=== PATIENT | male | born 1990 | race Caucasian/White ===

== ENCOUNTER → 2018-10-17 09:19 | Outpatient (CLI) | payer MEDICARE, SELFPAY ==
[2018-10-17 09:55] LABS: Absolute Lymphocyte Count 1.89 X10^3/ul (0.83-4.51); Absolute Neutrophil Count 3.3 X10^3/uL (2.0-7.7); Basophil# 0.01 X10^3/uL; Basophil% 0.2 % (0-1); Eosinophil# 0.15 X10^3/uL; Eosinophils% 2.6 % (0-5); Hematocrit 43.3 % (40-54); Hemoglobin 14.9 g/dl (13.0-16.5); Lymphocyte # 1.89 X10^3/ul (4.0); Lymphocyte % 32.5 % (19-41); Mean Corp Hgb Conc 34.4 g/gl (32-36); Mean Corpuscular Hgb 28.8 pg (27.0-32.0); Mean Corpuscular Volume 83.6 fL (80-94); Mean Platelet Vol. 10.4 fl (6.2-12.0); Monocyte# 0.46 X10^3/uL; Monocyte% 7.9 % (0-10); Neutrophil % 56.6 % (47-70); Platelet Count 186 K/mm3 (150-450); RBC Distribution Width CV 12.3 % (11.6-14.6); RBC Distribution Width SD 37.5 fl (35.1-43.9); Red Blood Count 5.18 M/mm3 (4.6-6.2); White Blood Count 5.8 K/mm3 (4.4-11.0)
[2018-10-17 09:58] LABS: POSITIVE COUNT NO; POSITIVE DIFFERENTIAL NO; POSITIVE MORPHOLOGY NO
[2018-10-17 10:45] LABS: ALB/GLOB Ratio 1.1 RATIO (0.9-2.4); AST(SGOT) 25 U/L (15-37); Alanine Aminotransfer ALT/SGPT 39 U/L (16-61); Albumin, Serum 3.9 g/dL (3.2-5.0); Alkaline Phosphatase 100 U/L (45-117); Anion Gap 8 (5-15); BUN 17 mg/dL (7-18); BUN/Creat Ratio 13.2 RATIO (10-20); Chloride 107 mmol/L (98-107); Cholesterol 173 mg/dL (200); Creatinine, Serum 1.29 mg/dL (0.70-1.30); EST Glomerular Filtration Rate 70 mL/min (>60); Est Glom Filt Rate - Afr Amer 84 mL/min (>60); Globulin 3.4 g/dL (2.2-4.2); Glucose 97 mg/dL (74-106); High Density Lipoprotein 32 mg/dL; Potassium 4.2 mmol/L (3.5-5.1); Prolactin 27.7 ng/mL; Protein, Total 7.3 g/dL (6.4-8.2); Sodium Level 143 mmol/L (136-145); Triglycerides 127 mg/dL; Very Low Density Lipoprotein 25 mg/dL (5-40)
--- OUTSIDE RECORDS SUMMARY | 2019-01-18 16:03 | XMS RPT_ITS ---
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 therapy / Repository Z79.899(ICD-10) 2018 Active Encounter for NA Active [facility] screening for [place] lipoid disorders Repository / Z13.220(ICD-10) PROCEDURES PROCEDURES No Procedure Records FoundRESULTS RESULTS CBC W/DIFF, AUTOMATED Collected: 10/17/2018 Status: F Source: [place] 9:32 AM [facility] REPOSITORY TYPE CODE TESTS RESULT OUT OF RANGE REFERENCE UNITS LAB L100.1000 4.4-11.0 K/mm3 Normal WBC 5.8 LAB L100.1200 4.6-6.2 M/mm3 Normal RBC 5.18 LAB L100.1300 13.0-16.5 g/dl Normal HGB 14.9 LAB L100.1400 40-54 % Normal HCT 43.3 LAB L100.1500 80-94 fL Normal MCV 83.6 LAB L100.1600 27.0-32.0 pg Normal MCH 28.8 LAB L100.1700 32-36 g/gl Normal MCHC 34.4 LAB L100.1810 11.6-14.6 % Normal RDW CV 12.3 LAB L100.1820 35.1-43.9 fl Normal RDW SD 37.5 LAB L100.1900 150-450 K/mm3 Normal PLT 186 LAB L100.2000 6.2-12.0 fl Normal MPV 10.4 LAB L100.2100 47-70 % Normal NEUT% 56.6 LAB L100.2200 19-41 % Normal LY% 32.5 LAB L100.2300 0-10 % Normal MONO% 7.9 LAB L100.2400 0-5 % Normal EO% 2.6 LAB L100.2500 0-1 % Normal BASO% 0.2 LAB L100.2550 0.0-0.9 % Normal IM GRAN % 0.200 Result Comment: IG% - Immature Granulocytes (promyelocytes, myelocytes and metamyelocytes) > 1% indicates that a LEFT SHIFT is Present. LAB L100.2620 2.0-7.7 X10 3/uL Normal Absolute Neut 3.3 LAB L100.2720 0.83-4.51 X10 3/ul Normal Absolute Lymph 1.89 Performed By: #### L100.0100 #### [facility] [address] [place], [address] COMPREHENSIVE METABOLIC Collected: 10/17/2018 Status: F Source: [facility] 9:32 AM [facility] REPOSITORY TYPE CODE TESTS RESULT OUT OF RANGE REFERENCE UNITS LAB L501.0100 74-106 mg/dL Normal GLU 97 Result Comment: Please note revised GLUCOSE reference range effective 2017. LAB L501.1000 7-18 mg/dL Normal BUN 17 LAB L501.1100 0.70-1.30 mg/dL Normal CREAT,SERUM 1.29 Result Comment: The validity of the calculated GFR AND GFRAA in patients over 70 years has not been determined. Clinical correlation is essential. LAB L501.1110 >60 mL/min Normal EST GFR 70 Result Comment: Non- GFR Calc LAB L501.1115 >60 mL/min Normal EST GFR - AA 84 Result Comment: GFR Calc LAB L501.1300 10-20 RATIO Normal BUN/CRE 13.2 LAB L501.1500 6.4-8.2 g/dL T Normal PROT 7.3 LAB L501.1800 3.2-5.0 g/dL Normal ALB 3.9 LAB L501.1950 2.2-4.2 g/dL Normal GLOB 3.4 LAB L501.2000 0.9-2.4 RATIO Normal A/G 1.1 LAB L501.2200 8.5-10.1 mg/dL CA Normal 9.0 LAB L501.4100 15-37 U/L Normal AST 25 LAB L501.4305 45-117 U/L Normal ALK P 100 LAB L501.4405 16-61 U/L Normal ALT 39 LAB L501.4600 0.20-1.00 mg/dL T Normal BILI 0.40 LAB L501.5300 136-145 mmol/L NA Normal 143 LAB L501.5600 3.5-5.1 mmol/L K Normal 4.2 LAB L501.5900 98-107 mmol/L CL Normal 107 LAB L501.6100 21.0-32.0 mmol/L Normal CO2 28.0 LAB L501.6200 5-15 Normal GAP 8 Performed By: #### L500.4050, L500.4100, L501.9520, L3100.5420 #### [facility] [address] [place], [address] LIPID PROFILE Collected: 10/17/2018 Status: F Source: [place] 9:32 AM [facility] REPOSITORY TYPE CODE TESTS RESULT OUT OF RANGE REFERENCE UNITS LAB L501.4900 200 mg/dL Normal CHOL 173 Result Comment: <200 mg/dL Desirable 200-240 mg/dL Borderline >240 mg/dL High Risk LAB L501.5000 mg/dL Normal TRIG 127 Result Comment: The drugs N-Acetylcysteine and Metamizole may falsely depress this assay. Serum Triglycerides Reference Interval Normal <150 mg/dL Borderline high 150 - 199 mg/dL High 200 - 499 mg/dL Very High > or = 500 mg/dL LAB L501.6400 mg/dL Low HDL 32 Result Comment: The drugs N-Acetylcysteine and Metamizole may falsely depress this assay. Reference Range HDL <40 mg/dL Low HDL Cholesterol HDL >or= 60 mg/dL High HDL Cholesterol LAB L501.6500 0-130 mg/dL Normal LDL 116 LAB L501.6600 5-40 mg/dL Normal VLDL 25 Performed By: #### L500.4050, L500.4100, L501.9520, L3100.5420 #### [facility] [address] [place], [address] THYROID STIM HORMONE Collected: 10/17/2018 Status: F Source: [place] ([facility]) 9:32 AM [facility] REPOSITORY TYPE CODE TESTS RESULT OUT OF RANGE REFERENCE UNITS LAB L501.9520 0.358-3.74 uIU/mL Normal TSH 1.00 Performed By: #### L500.4050, L500.4100, L501.9520, L3100.5420 #### [facility] [address] [place], [address] PROLACTIN Collected: 10/17/2018 Status: F Source: [place] 9:32 AM [facility] REPOSITORY TYPE CODE TESTS RESULT OUT OF RANGE REFERENCE UNITS LAB L3100.5420 ng/mL Normal PROLACTIN 27.7 Result Comment: NORMAL REFERENCE RANGES FEMALE NON- 2.2 - 30.3 ng/mL 8.1 - 347.6 ng/mL POST-MENOPAUSAL 0.7 - 31.5 ng/mL MALE 2.5 - 17.4 ng/mL NEW TEST METHOD AND REFERENCE RANGES MARCH 20, 2012 Performed By: #### L500.4050, L500.4100, L501.9520, L3100.5420 #### [facility] [address] [place], [address] LIPID PANEL, BASIC Collected: 2018 Status: F Source: [place] 2:08 PM [facility] REPOSITORY TYPE CODE TESTS RESULT OUT OF REFERENCE UNITS RANGE LAB CHOL <200 mg/dL Cholesterol 193 Result Comment: <200 mg/dL, Desirable 200-239 mg/dL, Borderline high >239 mg/dL, High LAB TRIGLY <150 mg/dL Triglyceride 139 Result Comment: <150 mg/dL, Normal 150-199 mg/dL, Borderline high 200-499 mg/dL, High >499 mg/dL, Very high LAB HDL >39 mg/dL HDL-Cholesterol Low 33 Result Comment: 40-59 mg/dL, Acceptable >59 mg/dL, High: Negative risk factor for coronary heart disease <40 mg/dL, Low: Positive risk factor for coronary heart disease LAB LDL <100 mg/dL LDL-Cholesterol High 132 Result Comment: <100 mg/dL, Optimal 100-129 mg/dL, Near optimal/above optimal 130-159 mg/dL, Borderline high 160-189 mg/dL, High >189 mg/dL, Very high Secondary prevention optimal LDL Cholesterol levels are recommended to be < 70 mg/dL LAB NONHDL <130 mg/dL Non HDL High Cholesterol 160 Result Comment: <130 mg/dL, Optimal 130-159 mg/dL, Near optimal/above optimal 160-189 mg/dL, Borderline high 190-219 mg/dL, High >219 mg/dL, Very high Secondary prevention optimal non HDL Cholesterol levels are recommended to be < 100 mg/dL LAB FT hrs Fasting Time 16 LAB VLDL <30 mg/dL VLDL Cholesterol 28 LAB TCHDL <5.10 High TC:HDL Ratio 5.85 LAB LDLHDL <2.54 High LDL:HDL Ratio 4.00 Result Comment: Reference: 1. National Cholesterol Education Program ATP III Guideline At-A-Glance Quick Desk Reference: National Heart, Lung, and Blood [place]. National Institutes of Health. 2001: NIH Publication No. 01-3305. 2. An International Atherosclerosis Society position paper: global recommendations for the management of dyslipidemia: executive summary, Atherosclerosis. 2014: 232(2):410-413. Performed By: #### LIPB #### [facility] [address] [place], [place] [address] PROGRESS Observed: 2018 Status: COMPLETED Source: [place] 1:41 PM [facility] REPOSITORY HNO ID: [id number] Author: Fahad Mensah (Abhi) [place] Service: (none) Author Type: Physician [employer]ating [employer]ing [employer] Operator Type: Progress Notes Filed: 2018 9:05 PM Note Text: 28 year old male with c/o 1. GERD with mid epigastric burning which intensifies with stress/ anxiety. Every now and then: a couple times in last few months. Eating no-acidic foods. Taking lots of Peptobismal which helps temporarily. 2. Last night had panic attack with burning not relieved with Peptobismal. Sees Dr. Blandon [facility]. HISTORIES FAMILY HISTORY Problem Relation Age of Onset - depression [Other] [OTHER] Mother - Hypertension Maternal Grandmother - epilepsy [Other] [OTHER] Maternal Grandmother - Heart Maternal Grandfather - Diabetes Maternal Grandmother PAST MEDICAL HISTORY Diagnosis Date - ADD (attention deficit disorder) 07/30/2010 - ALLERGIC RHINITIS NOS 03/07/2006 - Bilateral club feet - Bipolar affective disorder (HCC) 07/30/2010 - PMH - PAST MEDICAL HISTORY OF age 6 menigitis, viral PAST SURGICAL HISTORY Procedure Laterality Date - PAST SURGICAL HISTORY OF club foot repair Social History Marital status: Single Spouse name: Years of education: Number of children: Social History Main Topics Smoking status: Passive Smoke Exposure - Never Smoker Packs/day: 0.00 Years: 0.00 Smokeless status: Never Used Comment: mom smokes ACTIVE PROBLEM LIST Allergic Rhinitis, Cause Unspecified Bipolar Affective Disorder (Hcc) Add (Attention Deficit Disorder) Bilateral Club Feet Current Outpatient Prescriptions: hydrOXYzine HCl (ATARAX) 10 mg tablet Take 10 mg by mouth as needed. Disp: Rfl: risperiDONE (RISPERDAL) 2 mg tablet Take 2 mg by mouth once daily. Disp: Rfl: fexofenadine (JASWANT) 180 mg tablet Take 1 tablet by mouth once daily. Disp: 30 tablet Rfl: 2 fluticasone (FLONASE) 50 mcg/actuation nasal spray Use 2 Sprays in each nostril once daily. Disp: 1 Bottle Rfl: 11 No current facility-administered medications for this visit. TETANUS due on 07/07/2017 EXAM: BP 110/84 Pulse 64 Temp 36.2 ?C (97.2 ?F) (Tympanic) Resp 16 Wt 84.8 kg (187 lb) BMI 26.08 kg/m2 Pleasant very anxious young man in no acute distress. Alert and oriented all spheres. Pressured speech. Bizarre affect, normal cognition. No deficits to learning or comprehension. Skin warm, dry, pink to lips and nailbeds. Normal turgor. Respirations regular and unlabored. Abdomen: active bowel sounds throughout, soft, nontender, no masses or organomegaly. No CVAT. Extrem: no clubbing, cyanosis, edema. Extremities are warm and pink with prompt capillary refill. ASSESSMENT/PLAN: 1. Screening for lipid disorders - ICD9: V77.91, ICD10: Z13.220 (primary diagnosis) - LIPID PANEL BASIC 2. Gastroesophageal reflux disease, esophagitis presence not specified - ICD9: 530.81, ICD10: K21.9 - Discussed lifestyle modifications including losing weight, limiting caffeine, no meals three hours before sleep and head of bed elevation - Begin treatment with Prilosec 20 mg QD on empty stomach 3. MARGARETTE (generalized anxiety disorder) - ICD9: 300.02, ICD10: F41.1 F/U with psychiatrist Dr. Barber Lamar PA-C CNOV Observed: 2018 Status: COMPLETED Source: [place] 11:20 AM [facility] REPOSITORY Office Visit (FAMPWS) GILLIAN CASTREJON ([id number]) 1990 M Date Time Provider Department 02/21/18 11:20 AM [facility]ad LAMAR[facility] During your visit today, we recorded the following information about you: Temperature Pulse Respiration Blood pressure 97.2 degrees 64/minute 16/minute 110/84 Weight 84.8 kg Fahad Lamar PA-C 2018 9:05 PM Signed 28 year old male with c/o 1. GERD with mid epigastric burning which intensifies with stress/ anxiety. Every now and then: a couple times in last few months. Eating no-acidic foods. Taking lots of Peptobismal which helps temporarily. 2. Last night had panic attack with burning not relieved with Peptobismal. Sees Dr. Blandon [facility]. HISTORIES FAMILY HISTORY Problem Relation Age of Onset - depression [Other] [OTHER] Mother - Hypertension Maternal Grandmother - epilepsy [Other] [OTHER] Maternal Grandmother - Heart Maternal Grandfather - Diabetes Maternal Grandmother PAST MEDICAL HISTORY Diagnosis Date - ADD (attention deficit disorder) 07/30/2010 - ALLERGIC RHINITIS NOS 03/07/2006 - Bilateral club feet - Bipolar affective disorder (HCC) 07/30/2010 - PMH - PAST MEDICAL HISTORY OF age 6 menigitis, viral PAST SURGICAL HISTORY Procedure Laterality Date - PAST SURGICAL HISTORY OF club foot repair Social History Marital status: Single Spouse name: Years of education: Number of children: Social History Main Topics Smoking status: Passive Smoke Exposure - Never Smoker Packs/day: 0.00 Years: 0.00 Smokeless status: Never Used Comment: mom smokes ACTIVE PROBLEM LIST Allergic Rhinitis, Cause Unspecified Bipolar Affective Disorder (Hcc) Add (Attention Deficit Disorder) Bilateral Club Feet Current Outpatient Prescriptions: hydrOXYzine HCl (ATARAX) 10 mg tablet Take 10 mg by mouth as needed. Disp: Rfl: risperiDONE (RISPERDAL) 2 mg tablet Take 2 mg by mouth once daily. Disp: Rfl: fexofenadine (JASWANT) 180 mg tablet Take 1 tablet by mouth once daily. Disp: 30 tablet Rfl: 2 fluticasone (FLONASE) 50 mcg/actuation nasal spray Use 2 Sprays in each nostril once daily. Disp: 1 Bottle Rfl: 11 No current facility-administered medications for this visit. TETANUS due on 07/07/2017 EXAM: BP 110/84 Pulse 64 Temp 36.2 ?C (97.2 ?F) (Tympanic) Resp 16 Wt 84.8 kg (187 lb) BMI 26.08 kg/m2 Pleasant very anxious young man in no acute distress. Alert and oriented all spheres. Pressured speech. Bizarre affect, normal cognition. No deficits to learning or comprehension. Skin warm, dry, pink to lips and nailbeds. Normal turgor. Respirations regular and unlabored. Abdomen: active bowel sounds throughout, soft, nontender, no masses or organomegaly. No CVAT. Extrem: no clubbing, cyanosis, edema. Extremities are warm and pink with prompt capillary refill. ASSESSMENT/PLAN: 1. Screening for lipid disorders - ICD9: V77.91, ICD10: Z13.220 (primary diagnosis) - LIPID PANEL BASIC 2. Gastroesophageal reflux disease, esophagitis presence not specified - ICD9: 530.81, ICD10: K21.9 - Discussed lifestyle modifications including losing weight, limiting caffeine, no meals three hours before sleep and head of bed elevation - Begin treatment with Prilosec 20 mg QD on empty stomach 3. MARGARETTE (generalized anxiety disorder) - ICD9: 300.02, ICD10: F41.1 F/U with psychiatrist ABHI Stoll PA-C 2018 1:56 PM Signed For heartburn or Gastroesophageal Reflux (GERD): You need to gradually stop caffeine products which make heart burn worse by increasing acid and causing more activity in the stomach, creating more splash of acid into the esophagus. Avoid alcoholic beverages until symptoms improve, and generally limit to 1 or 2 a day. Obesity is a baeza factor in worsening heart burn and reflux. If you are overweight, a gradual weight reduction program should be implemented. Fad diets are not helpful, and may make you feel worse. Weight loss should be accomplished by modest reduction in calories, particularly in high carbohydrate or fatty foods, and through increased aerobic exercise. Get 30-60gm fiber per day in diet through beefy fruits and vegetables, beans, legumes, and whole grains. No more than 30% of calories should come from fat: 10% or less saturated, 10% or less polyunstaurated and the rest from monounsaturated fats. Avoid food high in trans-fats. Start an exercise program involving all four extremities in motion if possible, gradually increasing to goal of 30 minutes of sustained aerobic activity 3-4 days/ week. You should try to avoid over eating or laying down after a meal. Stay bolt upright for at least 90 minutes after eating. going for a walk may help food to settle. Avoid high acid foods such as citrus, tomatoes,sour candies, sugary foods and chocolate. Spicy foods, peppermint and salty or seasoned snacks may also cause problems. Put the head of your bed up on 4-6 inch blocks to help keep acid from coming up in your throat. Antacids or baking soda may help for brief occasional heartburn, but should not be used frequent symptoms as the stomach may detect the change in pH and secrete more acid. Products such as H2 blockers (Zantac, Tagamet, Pepcid, Axid, etc.) or Prilosec OTC may help. If symptoms aren't relieved with these choices over a few weeks of use, you should report this to your medical provider. We'll start Omeprazole. Give it a few days to work. Follow up in 2 weeks. Referring Provider: SELF [200] Allergies As of Date: 2018 Noted Allergy Reaction DUST 01/03/2006 3 - Cough PENICILLINS 01/03/2006 2 - Rash POISON JULIO 01/03/2006 7 - Swelling RAGWEED 01/03/2006 3 - Cough TREES 01/03/2006 3 - Cough cockroaches [Other] 01/03/2006 3 - Cough Date Reviewed: 2018 Reviewed by: Shilpa Ellison LPN - Fully Assessed Reason for Visit: GERD [548] Anxiety [9] Cmt: seems to flare up the GERD Orders [681] Cmt: for labs lipid Reason For Visit History Recorded Primary Visit Diagnosis:Screening for lipid disorders [Z13.220] Other Visit Diagnoses:Gastroesophageal reflux disease, esophagitis presence not specified [K21.9] MARGARETTE (generalized anxiety disorder) [F41.1] Order(s):LIPID PANEL BASIC [SQLIPB] Order #: [id number] FUTURE omeprazole (PRILOSEC) 20 mg capsuleTake 1 capsule by mouth daily before breakfast. 1/2 hr before meal.Disp: 30 capsuleRfl: 2 Prescriptions as of 2018 Sig: HYDROXYZINE HCL 10 MG TABLET Take 10 mg by mouth as needed. RISPERIDONE 2 MG TABLET Take 2 mg by mouth once daily. FEXOFENADINE 180 MG TABLET Take 1 tablet by mouth once d* FLUTICASONE 50 MCG/ACTUATION * Use 2 Sprays in each nostril * OMEPRAZOLE 20 MG CAPSULE,FRANTZ* Take 1 capsule by mouth daily* Problem List As Of Date 2018 Noted Resolved ALLERGIC RHINITIS NOS [J30.9] INVALID FOR* Bipolar Affective Disorder [F31.9] INVALID FOR* ADD (Attention Deficit Disorder) [F98.8] INVALID FOR* Bilateral club feet [Q66.0] INVALID FOR* Other instructions from your clinician: For heartburn or Gastroesophageal Reflux (GERD): You need to gradually stop caffeine products which make heart burn worse by increasing acid and causing more activity in the stomach, creating more splash of acid into the esophagus. Avoid alcoholic beverages until symptoms improve, and generally limit to 1 or 2 a day. Obesity is a baeza factor in worsening heart burn and reflux. If you are overweight, a gradual weight reduction program should be implemented. Fad diets are not helpful, and may make you feel worse. Weight loss should be accomplished by modest reduction in calories, particularly in high carbohydrate or fatty foods, and through increased aerobic exercise. Get 30-60gm fiber per day in diet through beefy fruits and vegetables, beans, legumes, and whole grains. No more than 30% of calories should come from fat: 10% or less saturated, 10% or less polyunstaurated and the rest from monounsaturated fats. Avoid food high in trans-fats. Start an exercise program involving all four extremities in motion if possible, gradually increasing to goal of 30 minutes of sustained aerobic activity 3-4 days/ week. You should try to avoid over eating or laying down after a meal. Stay bolt upright for at least 90 minutes after eating. going for a walk may help food to settle. Avoid high acid foods such as citrus, tomatoes,sour candies, sugary foods and chocolate. Spicy foods, peppermint and salty or seasoned snacks may also cause problems. Put the head of your bed up on 4-6 inch blocks to help keep acid from coming up in your throat. Antacids or baking soda may help for brief occasional heartburn, but should not be used frequent symptoms as the stomach may detect the change in pH and secrete more acid. Products such as H2 blockers (Zantac, Tagamet, Pepcid, Axid, etc.) or Prilosec OTC may help. If symptoms aren't relieved with these choices over a few weeks of use, you should report this to your medical provider. We'll start Omeprazole. Give it a few days to work. Follow up in 2 weeks. Prescriptions ordered this encounter Disp Refills Start End OMEPRAZOLE 20 MG CAPSULE,DELAYED REL* 30 c* 2 2018 Route: ORAL Sig: Take 1 capsule by mouth daily before breakfast. 1/2 hr before meal. Medications Discontinued During This Encounter Azelastine (ASTEPRO) 0.15 % (205.5 m* 1 Tony* 11 04/08/2015 2018 Route: EACH NOSTRIL Sig: Use 2 Sprays in each nostril once daily as needed. Disc: Reason for discontinue is not on file. Letter Text Raymond Lamar PA-C [address], [place] [address] 2018 Gillian Castrejon [facility]# [id number] [id number] TO WHOM IT MAY CONCERN: This is to certify that Mr. Gillian Castrejon has been under my care for illness and was unable to work 02/21/18. May return to work on 02/22/18 with no restrictions. Sincerely yours, FahadMarcos Lamar PA-C (Signed electronically to expedite mailing) Encounter Status:Closed by WILLARD MOE, Fahad MENSAH on 02/21/18 Observed: 11/30/2017 Status: F Source: [place] URINE CULTURE 2:13 PM [facility] REPOSITORY Sp. Request/Comment: - Specimen received in preservative Culture Result - No growth (<1,000 CFU/ml) Performed By: #### URCUL #### [facility] [address], [place] [address] PROGRESS Observed: 11/30/2017 Status: COMPLETED Source: [place] 1:58 PM [facility] REPOSITORY HNO ID: [id number] Author: Rocael Corbin (Pa) Service: (none) Author Type: Physician Coating And Embossing Unit Operator Type: Progress Notes Filed: 11/30/2017 2:13 PM Note Text: HPI Pt presents with frequent urination since last night. No vomiting or back pain. He has never had a UTI before. He has been drinking more water lately. He has never had sexual contact in the past or STD. He has some lower abdominal pressure associated. No penile discharge or drainage. No fevers. No diarrhea. Review of Systems Constitutional: Negative for chills and fever. HENT: Negative. Eyes: Negative. Respiratory: Negative. Cardiovascular: Negative. Gastrointestinal: Positive for abdominal pain. Negative for blood in stool, constipation, diarrhea, nausea and vomiting. Genitourinary: Positive for frequency. Negative for dysuria, flank pain, hematuria and urgency. Musculoskeletal: Negative. Skin: Negative. All other systems reviewed and are negative. PAST MEDICAL HISTORY Diagnosis Date - ADD (attention deficit disorder) 07/30/2010 - ALLERGIC RHINITIS NOS 03/07/2006 - Bilateral club feet - Bipolar affective disorder (HCC) 07/30/2010 - PMH - PAST MEDICAL HISTORY OF age 6 menigitis, viral Current Outpatient Prescriptions: hydrOXYzine HCl (ATARAX) 10 mg tablet Take 10 mg by mouth as needed. Disp: Rfl: risperiDONE (RISPERDAL) 2 mg tablet Take 2 mg by mouth once daily. Disp: Rfl: fexofenadine (JASWANT) 180 mg tablet Take 1 tablet by mouth once daily. Disp: 30 tablet Rfl: 2 fluticasone (FLONASE) 50 mcg/actuation nasal spray Use 2 Sprays in each nostril once daily. Disp: 1 Bottle Rfl: 11 Azelastine (ASTEPRO) 0.15 % (205.5 mcg) spry Use 2 Sprays in each nostril once daily as needed. Disp: 1 Bottle Rfl: 11 No current facility-administered medications for this visit. PAST SURGICAL HISTORY Procedure Laterality Date - PAST SURGICAL HISTORY OF club foot repair FAMILY HISTORY Problem Relation Age of Onset - depression [Other] [OTHER] Mother - Hypertension Maternal Grandmother - epilepsy [Other] [OTHER] Maternal Grandmother - Heart Maternal Grandfather - Diabetes Maternal Grandmother Social History Substance Use Topics - Smoking status: Passive Smoke Exposure - Never Smoker - Smokeless tobacco: Never Used Comment: mom smokes - Alcohol use Not on file BP 118/84 Pulse 80 Temp 36.5 ?C (97.7 ?F) Resp 28 Wt 83.5 kg (184 lb) BMI 25.66 kg/m2 Physical Exam Constitutional: He is oriented to person, place, and time. HENT: Head: Normocephalic and atraumatic. Cardiovascular: Normal rate, regular rhythm and normal heart sounds. Pulmonary/Chest: Effort normal and breath sounds normal. Abdominal: Soft. Bowel sounds are normal. He exhibits no distension. There is no tenderness. There is no rebound. Abdomen is benign, no tenderness to palpation. No peritoneal signs. Neurological: He is alert and oriented to person, place, and time. Skin: Skin is warm and dry. No rash noted. Psychiatric: Affect and judgment normal. Nursing note and vitals reviewed. ASSESSMENT/PLAN: 1. Frequent urination - ICD9: 788.41, ICD10: R35.0 acute - UA here negative for everything, no glucose, no blood no protein, no nitrates, no leuk est. - Pt abdomen is benign here and he denies ever having sexual intercourse. I did send urine for culture and instructed to follow up with pcp. Pt agreeable with this plan. Given warning signs to return to the express care and or ED. - UA DIP B/O - URINE CULTURE ABHI Paz Observed: 11/30/2017 Status: COMPLETED Source: [place] [address]:30 PM [facility] REPOSITORY Office Visit (UCW[facility]) OLYABRITANYGILLIAN R ([id number]) 1990 M Date Time Provider Department 11/30/17 1:30 PM ROCAEL CORBIN (SHAKIR) WS During your visit today, we recorded the following information about you: Temperature Pulse Respiration Blood pressure 97.7 degrees 80/minute 28/minute 118/84 Weight 83.5 kg Rocael Corbin PA-C 11/30/2017 2:13 PM Signed HPI Pt presents with frequent urination since last night. No vomiting or back pain. He has never had a UTI before. He has been drinking more water lately. He has never had sexual contact in the past or STD. He has some lower abdominal pressure associated. No penile discharge or drainage. No fevers. No diarrhea. Review of Systems Constitutional: Negative for chills and fever. HENT: Negative. Eyes: Negative. Respiratory: Negative. Cardiovascular: Negative. Gastrointestinal: Positive for abdominal pain. Negative for blood in stool, constipation, diarrhea, nausea and vomiting. Genitourinary: Positive for frequency. Negative for dysuria, flank pain, hematuria and urgency. Musculoskeletal: Negative. Skin: Negative. All other systems reviewed and are negative. PAST MEDICAL HISTORY Diagnosis Date - ADD (attention deficit disorder) 07/30/2010 - ALLERGIC RHINITIS NOS 03/07/2006 - Bilateral club feet - Bipolar affective disorder (HCC) 07/30/2010 - PMH - PAST MEDICAL HISTORY OF age 6 menigitis, viral Current Outpatient Prescriptions: hydrOXYzine HCl (ATARAX) 10 mg tablet Take 10 mg by mouth as needed. Disp: Rfl: risperiDONE (RISPERDAL) 2 mg tablet Take 2 mg by mouth once daily. Disp: Rfl: fexofenadine (JASWANT) 180 mg tablet Take 1 tablet by mouth once daily. Disp: 30 tablet Rfl: 2 fluticasone (FLONASE) 50 mcg/actuation nasal spray Use 2 Sprays in each nostril once daily. Disp: 1 Bottle Rfl: 11 Azelastine (ASTEPRO) 0.15 % (205.5 mcg) spry Use 2 Sprays in each nostril once daily as needed. Disp: 1 Bottle Rfl: 11 No current facility-administered medications for this visit. PAST SURGICAL HISTORY Procedure Laterality Date - PAST SURGICAL HISTORY OF club foot repair FAMILY HISTORY Problem Relation Age of Onset - depression [Other] [OTHER] Mother - Hypertension Maternal Grandmother - epilepsy [Other] [OTHER] Maternal Grandmother - Heart Maternal Grandfather - Diabetes Maternal Grandmother Social History Substance Use Topics - Smoking status: Passive Smoke Exposure - Never Smoker - Smokeless tobacco: Never Used Comment: mom smokes - Alcohol use Not on file BP 118/84 Pulse 80 Temp 36.5 ?C (97.7 ?F) Resp 28 Wt 83.5 kg (184 lb) BMI 25.66 kg/m2 Physical Exam Constitutional: He is oriented to person, place, and time. HENT: Head: Normocephalic and atraumatic. Cardiovascular: Normal rate, regular rhythm and normal heart sounds. Pulmonary/Chest: Effort normal and breath sounds normal. Abdominal: Soft. Bowel sounds are normal. He exhibits no distension. There is no tenderness. There is no rebound. Abdomen is benign, no tenderness to palpation. No peritoneal signs. Neurological: He is alert and oriented to person, place, and time. Skin: Skin is warm and dry. No rash noted. Psychiatric: Affect and judgment normal. Nursing note and vitals reviewed. ASSESSMENT/PLAN: 1. Frequent urination - ICD9: 788.41, ICD10: R35.0 acute - UA here negative for everything, no glucose, no blood no protein, no nitrates, no leuk est. - Pt abdomen is benign here and he denies ever having sexual intercourse. I did send urine for culture and instructed to follow up with pcp. Pt agreeable with this plan. Given warning signs to return to the express care and or ED. - UA DIP B/O - URINE CULTURE Rocael Corbin PA-C Referring Provider: SELF [[id number]] Allergies As of Date: 11/30/2017 Noted Allergy Reaction DUST 01/03/2006 3 - Cough PENICILLINS 01/03/2006 2 - Rash POISON JULIO 01/03/2006 7 - Swelling RAGWEED 01/03/2006 3 - Cough TREES 01/03/2006 3 - Cough cockroaches [Other] 01/03/2006 3 - Cough Date Reviewed: 11/30/2017 Reviewed by: Nayana Maria LPN - Fully Assessed Reason for Visit: UTI [116] Cmt: frequent urination AND bloating since last pm Primary Visit Diagnosis:Frequent urination [R35.0] Order(s):UA DIP B/O [2810222] Order #: [id number] URINE CULTURE [SQURCUL] Order #: [id number] Prescriptions as of 11/30/2017 Sig: HYDROXYZINE HCL 10 MG TABLET Take 10 mg by mouth as needed. RISPERIDONE 2 MG TABLET Take 2 mg by mouth once daily. FEXOFENADINE 180 MG TABLET Take 1 tablet by mouth once d* FLUTICASONE 50 MCG/ACTUATION * Use 2 Sprays in each nostril * AZELASTINE 0.15 % (205.5 MCG)* Use 2 Sprays in each nostril * Medication notes this encounter AZELASTINE 0.15 % (205.5 MCG) NASAL SPRAY >> Nayana Maria LPN 11/30/2017 1:41 PM >> NAYANA MARIA LPN TueNov 30, 2017 1:41 PM No longer using Problem List As Of Date 11/30/2017 Noted Resolved ALLERGIC RHINITIS NOS [J30.9] INVALID FOR* Bipolar Affective Disorder [F31.9] INVALID FOR* ADD (Attention Deficit Disorder) [F98.8] INVALID FOR* Bilateral club feet [Q66.0] INVALID FOR* Letter Text [place] [facility] SHAKIR Shen [address], [place] [address] 11/30/2017 TO WHOM IT MAY CONCERN: This is to confirm that Gillian Castrejon had an appointment and was seen at the [facility] in the Department of Urgent Care by SHAKIR Shen on 11/30/2017. Sincerely yours, SHAKIR Shen Encounter Status:Closed by ROCAEL CORBIN PA-C on 11/30/17 ALLERGIES ALLERGIES DATE TYPE / CODE NAME / CODE REACTION SEVERITY SOURCE 01/03/2006 Environ/[id number]( DUST COUGH [place] SNOMED [facility]) [facility] Main [place] Repository 01/03/2006 Drug PENICILLINS RASH [facility] Class/[id number](SN Clinic Main OMED [facility]) [place] Repository 01/03/2006 Environ/[id number]( POISON JULIO SWELLING [facility] SNOMED CT) [facility] Main [place] Repository 01/03/2006 Environ/[id number]( RAGWEED COUGH [facility] SNOMED [facility]) [facility] Main [place] Repository 01/03/2006 Environ/[id number]( TREES COUGH [facility] SNOMED [facility]) [facility] Main [place] Repository 01/03/2006 Miscellaneous OTHER COUGH [facility] Allergy/615814185( Clinic Main SNOMED CT) [place] Repository ENCOUNTERS ENCOUNTERS ADMIT/DISCHARGE ACCOUNT ADMITTING ENCOUNTER LOCATION SOURCE NUMBER CLASS 10/17/2018 [id number] [facility] ing:LAB Repository 02/21/2018/02/22/20 [id number] Ambulatory [address] [place] Repository 02/21/2018/02/23/20 [id number] Ambulatory [address] Repository 11/30/2017/11/30/19 [id number] Ambulatory [address] Repository PAYERS PAYERS ENCOUNTER GUARANTOR PAYER SUBSCRIBER SOURCE 10/17/2018 GILLIAN NESBITT Primary Insurance:O GILLIAN [id number] MEDICAREPolicy JOHNSONDOB: [facility] Number: [id number], [place] [id number] Repository [address]Zdi: [phone]) Date:[phone] ( [address], [place] [address]QN: 10/17/2018 Secondary NOT GIVENHEMANT [place] Insurance:SELF PAY [facility] Number: Effective Repository Date:2018-10-17
== END ==
PROVIDERS: Family Provider Pediatrics; PCP Pediatrics
DX: Z79.899 Other long term (current) drug therapy (principal); F19.10 Other psychoactive substance abuse, uncomplicated; R53.83 Other fatigue
CPT/HCPCS: 36415; 80053; 80061; 84146; 84443; 85025